=== PATIENT | male | born 1950 | race Caucasian/White ===

== ENCOUNTER → 2016-05-11 | Day surgery (SDC) | payer MEDICARE ==
[~2016-05-11] MED LIST: 1-ME1LIQ PO; BENZ100 PO; BUPIVACAINE/EPINEPHRINE 0.5% PF 30 ML VIAL ONE; FLUT1SPR9; KETOROLAC TROMETHAMINE 30 MG/ML (IVP) VIAL IV PUSH ONE; LACTATED RINGER'S 1000 ML INJ 1,000 ML ONE; MEPERIDINE HCL 25 MG/ML VIAL ONE; MIDAZOLAM HCL 2 MG/2 ML VIAL ONE; MORPHINE SULFATE 4 MG/ML INJ ONE; ONDANSETRON HCL 4 MG/2 ML VIAL IV PUSH ONE; PROPOFOL 200 MG/20 ML AMP IV ONE; ROSU10 PO; ZITH250T PO; ceFAZolin INJ 1,000 MG VIAL ONE
--- NOTE | 2016-05-13 12:34 | MP ---
cc: LUIS HOBBS M.D. DATE OF SURGERY: 05/11/2016 PREOPERATIVE DIAGNOSIS Right knee medial meniscus tear and chondromalacia medial compartment. POSTOPERATIVE DIAGNOSIS 1. Medial meniscus tear. 2. 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 3. Chondromalacia trochlear groove. ANESTHESIA General. SURGEON Luis Hobbs MD MALE MODEL Staff COMPLICATIONS None known. SPECIMEN None. INDICATION Bry Cano is a 65-year-old male with persistent right knee medial pain. MRI scan shows the medial meniscus tear as well as chondromalacia within the medial compartment. The risks and benefits were thoroughly discussed and the options of treatment were discussed. He is now indicated for knee arthroscopy. A detailed informed consent was obtained and no guarantees were offered. PROCEDURE The patient was brought into the operating room and placed under general anesthetic. The right lower extremity was draped and prepped in the usual sterile fashion. IV antibiotics were given. A timeout was completed. An inferolateral portal was made. Marcaine was injected about the portals. Blunt trocar used to reduce the cannula. The patellofemoral joint visualized in full extension looked normal. With 30 degrees of flexion we noted chondromalacia on the diffuse grade II in a jaycee-shaped region in the trochlear groove measuring approximately 2 cm x 2 cm. We visualized the lateral compartment which showed some minimal inner edge fraying of the meniscus otherwise healthy. ACL appeared normal. The medial compartment showed diffuse chondromalacia some of which was unstable on the weightbearing portion of the medial femoral condyle and some exposed bone on the medial edge of the medial plateau approximately 1 x 2 cm, as well as unstable tear in the body in the posterior horn of the medial meniscus. An arthroscopic partial medial meniscectomy was performed with a combination of basket forceps and arthroscopic shaver. We smoothed and contoured the medial femoral condyle. Multiple photographs showed the final result. We did a repeat diagnostic arthroscopy and confirmed no loose bodies. Arthroscopic equipment was removed. Marcaine had been injected about the portals. Steri-Strips applied. Sterile dressing applied. The patient was awoken and returned to the recovery room in stable condition. MD KRAIG Kaur/SALONI /1:48 PM /12:14 PM
== END | disposition home or self-care (01) ==
LOC: ESDC 11:54
PROVIDERS: ATTEND Orthopaedic Surgery Sports Medicine
DX: S83.241A Other tear of medial meniscus, current injury, right knee, initial encounter (principal); M94.261 Chondromalacia, right knee
CPT/HCPCS: 01400; 29881; J0690; J1885; J2175; J2250; J2270; J2405; J3010; J7120